=== PATIENT | male | born 1970 | race Caucasian/White ===

== ENCOUNTER 2016-02-27 10:48 | Emergency (ER) | payer BC ==
[2016-02-27 11:13] VITALS: BP 148/99
--- NOTE | 2016-02-27 13:37 | UC ---
Respiratory Complaint HPI - HPI Summary HPI Summary: cough, cold sx, fatigue, upset stomach, slept 20 hours yesterday---unsure about fevers - History of Current Complaint Chief Complaint: UCRespiratory Stated Complaint: BAD COLD Time Seen by Provider: 02/27/16 10:59 Hx Obtained From: Patient Onset/Duration: Gradual Onset, Lasting Days - 4, Still Present Timing: Constant Severity Initially: Moderate Severity Currently: Mild Pain Intensity: 0 Pain Scale Used: 0-10 Numeric Character: Cough: Nonproductive Alleviating Factors: OTC Meds Associated Signs And Symptoms: Positive: Chills, URI, Nasal Congestion - Allergies/Home Medications Allergies/Adverse Reactions: Allergies Allergy/AdvReac Type Severity Reaction Status Date / Time Latex Allergy Intermediate Rash Verified 06/15/12 14:58 [place] Allergy Intermediate Hives Verified 02/27/16 11:08 Penicillins Allergy Mild Hives Verified 06/15/12 14:58 Home Medications: Home Medications [id number] ER TAB [Mucinex*] 1 tab 02/27/16 [History] PMH/Surg Hx/FS Hx/Imm Hx Previously Healthy: No Cardiovascular History Of: Reports: Hypertension - Surgical History Surgical History: None - Family History Known Family History: Positive: Hypertension - Social History Occupation: Employed Full-time Lives: With Family - "roomates" Alcohol Use: Rare Substance Use Type: None Smoking Status (MU): Former Smoker Review of Systems Constitutional: Chills, Fatigue Skin: Negative Eyes: Negative ENT: Sore Throat, Ear Ache, Nasal Discharge Respiratory: Cough Cardiovascular: Negative Gastrointestinal: Negative Genitourinary: Negative Motor: Negative Neurovascular: Negative Musculoskeletal: Negative Neurological: Negative Psychological: Negative All Other Systems Reviewed And Are Negative: Yes Physical Exam Triage Information Reviewed: Yes Appearance: Well-Appearing, No Pain Distress, Well-Nourished Vital Signs: Initial Vital Signs Temp 99.7 F 02/27/16 11:09 Pulse 78 02/27/16 11:09 Resp 17 02/27/16 11:09 BP 148/99 02/27/16 11:09 Pulse Ox 97 02/27/16 11:09 Vital Signs Reviewed: Yes Eye Exam: Normal Eyes: Positive: Conjunctiva Clear ENT Exam: Normal ENT: Positive: Normal ENT inspection, Hearing grossly normal, Pharynx normal, Nasal congestion, Nasal drainage, TMs normal. Negative: Tonsillar swelling, Tonsillar exudate, Trismus, Muffled/hoarse voice Neck exam: Normal Neck: Positive: Supple, Nontender Respiratory Exam: Normal Respiratory: Positive: Chest non-tender, Lungs clear, Normal breath sounds, No respiratory distress, No accessory muscle use Cardiovascular Exam: Normal Cardiovascular: Positive: RRR, No Murmur, Pulses Normal, Brisk Capillary Refill Abdominal Exam: Normal Abdomen Description: Positive: Nontender, No Organomegaly, Soft Bowel Sounds: Positive: Present Musculoskeletal Exam: Normal Musculoskeletal: Positive: Strength Intact, ROM Intact, No Edema Neurological Exam: Normal Neurological: Positive: Alert, Muscle Tone Normal Psychological Exam: Normal Skin Exam: Normal UC Diagnostic Evaluation - Laboratory O2 Sat by Pulse Oximetry: 97 Respiratory Course/Dx - Course Course Of Treatment: tyleno, ibuprofen, otc symptom relieves, follow with pcp for BP recheck off work for 1 day - Differential Dx/Diagnosis Differential Diagnosis/HQI/PQRI: Lower Resp Infection, Sinusitis Provider Diagnoses: URI, Viral Illness Discharge - Discharge Plan Condition: Stable Disposition: HOME Prescriptions: Fluticasone NASAL SPRAY 50MCG* [Flonase NASAL SPRAY 50MCG*] 2 spray BOTH NARES DAILY #1 btl Patient Education Materials: Upper Respiratory Infection (ED), Viral Syndrome ( ED), How to Use Nasal [place] (ED) Forms: *Work Release Referrals: Froilan Moffett MD [Primary Care Provider] - 5 Days
== END 2016-02-27 11:22 | disposition home or self-care (01) ==
LOC: UCEAST 10:48
DX: J06.9 Acute upper respiratory infection, unspecified (principal); B34.9 Viral infection, unspecified; Z88.0 Allergy status to penicillin; Z87.891 Personal history of nicotine dependence
CPT/HCPCS: 99212; G0463

== ENCOUNTER 2016-09-01 19:30 | Emergency (ER) | payer BC ==
[2016-09-01 19:56] VITALS: BP 150/86
--- NOTE | 2016-09-01 20:12 | UC ---
Ear Complaint HPI - HPI Summary HPI Summary: Bilat ears "bothering" pt for 2-3 months, mostly feeling clogged, throbbing at night, hearing crackles. Sx mainly on L side. Also had 1 day of vertigo in late July, thinks it was from his ear. Had several surgeries on ears as a child, including tubes, no surgeries as an adult. Feeling some mild URI sx in the last couple days. - History of Current Complaint Chief Complaint: UCEar Stated Complaint: EAR PAIN Time Seen by Provider: 09/01/16 19:58 Hx Obtained From: Patient Onset/Duration: Gradual Onset, Lasting Weeks Severity Initially: Mild Severity Currently: Mild Associated Signs/Symptoms: Positive: Hearing Loss, URI Symptoms - Allergies/Home Medications Allergies/Adverse Reactions: Allergies Allergy/AdvReac Type Severity Reaction Status Date / Time Latex Allergy Intermediate Rash Verified 09/01/16 19:50 [place] Allergy Intermediate Hives Verified 09/01/16 19:50 Penicillins Allergy Mild Hives Verified 09/01/16 19:50 PMH/Surg Hx/FS Hx/Imm Hx Previously Healthy: Yes Cardiovascular History: Hypertension - Surgical History Surgical History: None - Family History Known Family History: Positive: Hypertension - Social History Alcohol Use: Occasionally Substance Use Type: None Smoking Status (MU): Former Smoker Length of Time of Smoking/Using Tobacco: quit 24 yrs ago Review of Systems Constitutional: Negative Skin: Negative Eyes: Negative ENT: Ear Ache, Nasal Discharge Respiratory: Negative Cardiovascular: Negative Gastrointestinal: Negative Genitourinary: Negative Motor: Negative Neurovascular: Negative Musculoskeletal: Negative Neurological: Negative Psychological: Negative All Other Systems Reviewed And Are Negative: Yes Physical Exam Triage Information Reviewed: Yes Appearance: Well-Appearing, No Pain Distress, Well-Nourished Vital Signs: Initial Vital Signs Temp 97.3 F 09/01/16 19:51 Pulse 99 09/01/16 19:51 Resp 16 09/01/16 19:51 BP 150/86 09/01/16 19:51 Pulse Ox 95 09/01/16 19:51 Vital Signs Reviewed: Yes Eye Exam: Normal Eyes: Positive: Conjunctiva Clear ENT: Positive: Pharynx normal, TMs normal - post-flush, Other: - L cerumen impaction Dental Exam: Normal Neck exam: Normal Neck: Positive: Supple, Nontender, No Lymphadenopathy Respiratory Exam: Normal Respiratory: Positive: Chest non-tender, Lungs clear, Normal breath sounds, No respiratory distress, No accessory muscle use Cardiovascular Exam: Normal Cardiovascular: Positive: RRR, No Murmur Musculoskeletal Exam: Normal Neurological Exam: Normal Psychological Exam: Normal Skin Exam: Normal Ear Complaint Course/Dx - Differential Dx/Diagnosis Provider Diagnoses: L ear cerumen impaction. URI, likely viral Discharge - Discharge Plan Condition: Stable Disposition: HOME Patient Education Materials: Cerumen Impaction (ED) Referrals: Froilan Moffett MD [Primary Care Provider] -
== END 2016-09-01 20:25 | disposition home or self-care (01) ==
LOC: UCEAST 19:30
DX: H61.22 Impacted cerumen, left ear (principal); J39.8 Other specified diseases of upper respiratory tract
CPT/HCPCS: 99211; G0463

== ENCOUNTER 2016-11-15 12:05 | Emergency (ER) | payer BC ==
--- NOTE | 2016-11-15 12:32 | UC ---
Respiratory Complaint HPI - HPI Summary HPI Summary: 46 Y/O male with complaint of upper respiratory symptoms for approximately one week. Presents today with C/O sore throat, fever and chills. States did not take a temperature at home. Denies dyspnea, nausea, vomiting, chest pain or abdominal pain. Discussed elevated blood pressure 165/109, states has history of hypertension, takes medications as directed. Has been to primary medical doctor recently and has been counseled regarding diet, exercise, and medication adherence. All other medical history reviewed along with medications. - History of Current Complaint Chief Complaint: UCRespiratory Stated Complaint: URI Time Seen by Provider: 11/15/16 12:20 Hx Obtained From: Patient Onset/Duration: Gradual Onset, Lasting Days Timing: Constant Severity Initially: Mild Severity Currently: Moderate Pain Intensity: 4 Pain Scale Used: 0-10 Numeric Aggravating Factors: Nothing Associated Signs And Symptoms: Positive: Fever, Chills - Risk Factors Pulmonary Embolism Risk Factors: Negative Cardiac Risk Factors: Hypertension, Elevated Lipids Pseudomonas Risk Factors: Negative Tuberculosis Risk Factors: Negative - Allergies/Home Medications Allergies/Adverse Reactions: Allergies Allergy/AdvReac Type Severity Reaction Status Date / Time Latex Allergy Intermediate Rash Verified 11/15/16 12:09 [place] Allergy Intermediate Hives Verified 11/15/16 12:09 Penicillins Allergy Mild Hives Verified 11/15/16 12:09 PMH/Surg Hx/FS Hx/Imm Hx Previously Healthy: Yes Cardiovascular History: Hypertension GI/ History: Gastroesophageal Reflux - Surgical History Surgical History: None - Family History Known Family History: Positive: Hypertension - Social History Alcohol Use: Occasionally Substance Use Type: None Smoking Status (MU): Former Smoker Length of Time of Smoking/Using Tobacco: quit 24 yrs ago Review of Systems Constitutional: Fever, Chills Skin: Negative Eyes: Negative ENT: Negative Respiratory: Negative Cardiovascular: Negative Gastrointestinal: Negative Genitourinary: Negative Motor: Negative Neurovascular: Negative Musculoskeletal: Negative Neurological: Negative Psychological: Negative Is Patient Immunocompromised?: No All Other Systems Reviewed And Are Negative: Yes Physical Exam Triage Information Reviewed: Yes Appearance: Well-Appearing Vital Signs: Initial Vital Signs Temp 98.3 F 11/15/16 12:09 Pulse 68 11/15/16 12:09 Resp 18 11/15/16 12:09 BP 165/109 11/15/16 12:09 Pulse Ox 100 11/15/16 12:09 Vital Signs Reviewed: Yes Eye Exam: Normal Eyes: Positive: Conjunctiva Clear ENT Exam: Other ENT: Positive: Pharyngeal erythema Neck exam: Normal Neck: Positive: Supple Respiratory Exam: Normal Respiratory: Positive: Lungs clear, Normal breath sounds Cardiovascular Exam: Normal Cardiovascular: Positive: RRR Abdominal Exam: Normal Abdomen Description: Positive: Nontender Bowel Sounds: Positive: Present Musculoskeletal Exam: Normal Musculoskeletal: Positive: Strength Intact Neurological Exam: Normal Neurological: Positive: Alert Psychological Exam: Normal Skin Exam: Normal UC Diagnostic Evaluation - Laboratory O2 Sat by Pulse Oximetry: 100 Respiratory Course/Dx - Differential Dx/Diagnosis Differential Diagnosis/HQI/PQRI: Lower Resp Infection, Other Provider Diagnoses: Viral illness Discharge - Discharge Plan Condition: Stable Disposition: HOME Patient Education Materials: Viral Syndrome (ED) Additional Instructions: Your rapid strep test was negative. Continue to drink plenty of fluids and get rest. Your repeat blood pressure was elevated 130/100. Please follow up with your primary medical provider and continue to take medication as directed. You may return to urgent care for worsening symptoms (shortness of breath, fever, difficulty swallowing). .
[2016-11-15 12:46] VITALS: BP 130/100
== END 2016-11-15 12:55 | disposition home or self-care (01) ==
LOC: UCEAST 12:05
DX: B34.9 Viral infection, unspecified (principal); Z88.0 Allergy status to penicillin; I10 Essential (primary) hypertension
CPT/HCPCS: 87651; 99211; G0463

== ENCOUNTER 2019-02-26 16:50 | Emergency (ER) | payer BC, OTHER ==
[2019-02-26 17:04] VITALS: BP 162/107
--- NOTE | 2019-02-26 17:12 | UC ---
Throat Pain/Nasal [place] HPI - HPI Summary HPI Summary: Patient is a 48yo male presenting with chest congestion, dry cough, nasal congestion, and b/l ear pressure x1.5 days. Patient states he thought symptoms would get better but they are worsening. Also notes PND. Denies sore throat. Denies SOB and wheezing. Denies fever and myalgias. Notes chills. Denies decreased appetite/fluid intake. Denies ill contacts. - History of Current Complaint Chief Complaint: UCGeneralIllness Stated Complaint: CONGESTION, COUGH Hx Obtained From: Patient Pain Intensity: 0 - Allergies/Home Medications Allergies/Adverse Reactions: Allergies Allergy/AdvReac Type Severity Reaction Status Date / Time latex Allergy Rash Verified 02/26/19 17:04 Penicillins Allergy Hives Verified 02/26/19 17:04 [place] Allergy Rash Verified 02/26/19 17:04 PMH/Surg Hx/FS Hx/Imm Hx Cardiovascular History: Hypertension - Surgical History Surgical History: None - Family History Known Family History: Positive: Hypertension - Social History Alcohol Use: Rare Substance Use Type: None Smoking Status (MU): Former Smoker Length of Time of Smoking/Using Tobacco: quit 24 yrs ago Review of Systems All Other Systems Reviewed And Are Negative: Yes Constitutional: Positive: Chills. Negative: Fever ENT: Positive: Nasal Discharge - PND, Sinus Congestion. Negative: Sore Throat, Sinus Pain/Tenderness Respiratory: Positive: Cough - nonproductive. Negative: Shortness Of Breath Cardiovascular: Positive: Negative Gastrointestinal: Positive: Negative. Negative: Vomiting, Nausea Musculoskeletal: Negative: Myalgia Neurological: Negative: Headache Physical Exam Triage Information Reviewed: Yes Appearance: Well-Appearing, No Pain Distress, Well-Nourished Vital Signs: Initial Vital Signs Temp 98.6 F 02/26/19 16:59 Pulse 100 02/26/19 16:59 Resp 18 02/26/19 16:59 BP 162/107 02/26/19 16:59 Pulse Ox 98 02/26/19 16:59 Lab Results 02/26/19 Range/Units 17:12 Influenza A (Rapid) Negative (Negative) Influenza B (Rapid) Negative (Negative) Vital Signs Reviewed: Yes Eyes: Positive: Conjunctiva Clear ENT: Positive: Hearing grossly normal, Pharynx normal, Nasal drainage, TMs normal, Uvula midline. Negative: Tonsillar swelling, Tonsillar exudate, Sinus tenderness Neck exam: Normal Neck: Positive: Supple, Nontender, No Lymphadenopathy Respiratory Exam: Normal Respiratory: Positive: Lungs clear, Normal breath sounds, No respiratory distress, No accessory muscle use. Negative: Crackles, Rhonchi, Stridor, Wheezing Cardiovascular Exam: Normal Cardiovascular: Positive: RRR, No Murmur Neurological: Positive: Alert Psychological: Positive: Age Appropriate Behavior Skin Exam: Normal Throat Pain/Nasal Course/Dx - Course Course Of Treatment: Negative rapid flu. Discussed viral URI and acute bronchitis with patient. Instructed to continue with symptomatic treatment and follow up with pcp if symptoms do not resolve. Patient voiced understanding and agreed with treatment plan. - Differential Dx/Diagnosis Provider Diagnosis: Viral URI, Acute bronchitis Discharge ED - Sign-Out/Discharge Documenting (check all that apply): Patient Departure All imaging exams completed and their final reports reviewed: No Studies - Discharge Plan Condition: Stable Disposition: HOME Patient Education Materials: Upper Respiratory Infection (ED), Acute Bronchitis (ED), Hypertension (ED) Forms: *Work Release Referrals: Froilan Moffett MD [Primary Care Provider] - 2 Weeks Additional Instructions: As discussed, your symptoms are most likely caused by a virus and should resolve without treatment. You may take an over the counter decongestant to help reduce your mucus production. You may continue to take over the counter cough and cold medications for your cold symptoms. You may use nasal saline spray or Flonase for symptomatic relief. You may take ibuprofen as directed for pain relief. Get plenty of rest and increase your fluid intake. Follow up with your primary care doctor if your symptoms worsen or do not resolve within 7 days. Your blood pressure was elevated at 162/107. It is recommended that you follow up with your primary care provider withing the next 1-2 weeks for recheck of blood pressure. - Billing Disposition and Condition Condition: STABLE Disposition: Home
[2019-02-26 17:24] LABS: Influenza A Molecular NEGATIVE (Negative); Influenza B Molecular NEGATIVE (Negative)
== END 2019-02-26 17:40 | disposition home or self-care (01) ==
LOC: UCEAST 16:50
DX: J06.9 Acute upper respiratory infection, unspecified (principal); J20.9 Acute bronchitis, unspecified; I10 Essential (primary) hypertension; Z87.891 Personal history of nicotine dependence; Z88.0 Allergy status to penicillin; Z91.018 Allergy to other foods; Z91.040 Latex allergy status
CPT/HCPCS: 99211; G0463

== ENCOUNTER 2019-03-21 10:38 | Emergency (ER) | payer OTHER ==
[2019-03-21 11:46] VITALS: BP 150/86
[2019-03-21 13:26] LABS: Influenza A Molecular Negative (Negative); Influenza B Molecular Negative (Negative)
--- NOTE | 2019-03-21 14:25 | UC ---
FLU HPI - HPI Summary HPI Summary: 48-year-old male presents with 2 day history of general malaise, nasal congestion, runny nose, sneezing, left ear pain, sore throat, a dry nonproductive cough. He has not used any [id number] cold medications. Denies fever, chills, ear drainage, dysphagia, chest pain, shortness of breath, abdominal pain, nausea, or vomiting. - History of Current Complaint Chief Complaint: UCEar Stated Complaint: COUGH CONGESTION EAR PAIN Time Seen by Provider: 03/21/19 13:49 Hx Obtained From: Patient Pain Intensity: 3 - Allergy/Home Medications Allergies/Adverse Reactions: Allergies Allergy/AdvReac Type Severity Reaction Status Date / Time latex Allergy Rash Verified 03/21/19 11:40 Penicillins Allergy Hives Verified 03/21/19 11:40 [place] Allergy Rash Verified 03/21/19 11:40 Home Medications: Home Medications Hydrochlorothiazide TAB* [Hydrodiuril TAB*] 25 mg PO DAILY 03/21/19 [History] PMH/Surg Hx/FS Hx/Imm Hx Cardiovascular History: Hypertension - Surgical History Surgical History: Yes Surgery Procedure, Year, and Place: tubes in ears as a child - Family History Known Family History: Positive: Hypertension - Social History Occupation: Employed Full-time Lives: Alone Alcohol Use: Rare Substance Use Type: None Smoking Status (MU): Former Smoker Length of Time of Smoking/Using Tobacco: quit 24 yrs ago - Immunization History Most Recent Tetanus Shot: UTD Review of Systems All Other Systems Reviewed And Are Negative: Yes Constitutional: Negative: Fever, Chills Eyes: Negative: Drainage, Eye Redness ENT: Positive: Sore Throat, Ear Ache, Nasal Discharge, Sinus Congestion. Negative: Sinus Pain/Tenderness Respiratory: Positive: Cough. Negative: Shortness Of Breath Cardiovascular: Negative: Palpitations, Chest Pain Gastrointestinal: Negative: Abdominal Pain, Vomiting, Nausea Genitourinary: Positive: Negative Musculoskeletal: Positive: Negative Neurological: Positive: Negative Is Patient Immunocompromised?: No Physical Exam - Summary Physical Exam Summary: GENERAL APPEARANCE: Well developed, well nourished, alert and cooperative, and appears to be in no acute distress. EYES: Conjunctiva clear. No drainage. EARS: External auditory canals and tympanic membranes clear, hearing grossly intact. NOSE: Moderate nasal congestion. No nasal discharge. THROAT: Mild pharyngeal erythema with postnasal drip. No tonsilar inflammation , swelling, exudate, or lesions. Uvula midline. NECK: Neck supple, non-tender without lymphadenopathy. CARDIAC: Normal S1 and S2. No S3, S4 or murmurs. Rhythm is regular. There is no peripheral edema, cyanosis or pallor. Extremities are warm and well perfused. Capillary refill is less than 2 seconds. Peripheral pulses intact. LUNGS: Clear to auscultation without rales, rhonchi, wheezing or diminished breath sounds. Dry, nonproductive cough. ABDOMEN: Positive bowel sounds. Soft, nondistended, nontender. No guarding or rebound. No masses or hepatosplenomegally. MUSKULOSKELETAL: ROM intact to all extremities. No joint erythema or tenderness. Normal muscular development. Normal gait. SKIN: Skin normal color, texture and turgor with no lesions or eruptions. Triage Information Reviewed: Yes Vital Signs: Initial Vital Signs Temp 98.8 F 03/21/19 11:41 Pulse 70 03/21/19 11:41 Resp 20 03/21/19 11:41 BP 150/86 03/21/19 11:41 Pulse Ox 99 03/21/19 11:41 Vital Signs Reviewed: Yes Flu Course/Dx - Course Course Of Treatment: 48-year-old male presents with 2 day history of general malaise, nasal congestion, runny nose, sneezing, left ear pain, sore throat, a dry nonproductive cough. He has not used any [id number]-[id number] cold medications. Denies fever, chills, ear drainage, dysphagia, chest pain, shortness of breath, abdominal pain, nausea, or vomiting. Afebrile. Hypertensive otherwise vital signs stable. Patient had moderate nasal congestion, normal TMs, mild pharyngeal erythema without tonsillar swelling or exudate, no cervical lymphadenopathy, clear bilateral breath sounds, dry nonproductive cough, and otherwise unremarkable exam. Rapid flu test was negative. Rapid strep test was negative. Results were reviewed with the patient. Discussed that his symptoms are consistent with an acute viral upper respiratory infection and recommending symptomatic treatment at this time. He is to follow-up with his primary care provider in 3-5 days if symptoms are not improving. Anticipatory guidance and warning symptoms were reviewed with the patient. Verbalized understanding and agrees with plan of care. - Differential Dx/Diagnosis Differential Diagnosis/HQI/PQRI: Bronchitis, Influenza, Pneumonia, Upper Respiratory Infection Provider Diagnosis: Viral URI with cough Discharge ED - Sign-Out/Discharge Documenting (check all that apply): Patient Departure All imaging exams completed and their final reports reviewed: No Studies - Discharge Plan Condition: Stable Disposition: HOME Prescriptions: Benzonatate CAP* [Tessalon 100 MG CAP*] 100 mg PO TID PRN #21 cap PRN Reason: Cough Fluticasone NASAL SPRAY 50MCG* [Flonase NASAL SPRAY 50MCG*] 2 spray BOTH NARES DAILY #1 btl Patient Education Materials: Upper Respiratory Infection (ED) Forms: *Work Release Referrals: Froilan Moffett MD [Primary Care Provider] - 3 Days (If no improvement in symptoms.) Additional Instructions: The rapid flu test and rapid strep test that was performed in the clinic today were both negative. Your history and exam are consistent with a viral upper respiratory infection. Viral infections do not respond to antibiotics and are limited to the treatment of symptoms. Viral infections typically run their course in 7-10 days. Drink plenty of fluids to avoid dehydration especially if you are running any fever. Use a saline rinse kit such as Neti Pot or NeilMed at least twice a day to help thin secretions and promote drainage of the sinuses. Use fluticasone (Flonase) nasal spray 2 sprays each nostril once daily. Use Tessalon Perles 1 capsule every 8 hours as needed for cough. Take over the counter acetaminophen (Tylenol) or ibuprofen (Advil, Motrin) according to directions as needed for pain or fever. Use salt water gargles several times a day if you have a sore throat. You may also use Chloraseptic spray or Cepacol lonzenges according to directions which contain a numbing medication and can provide some temporary relief from your sore throat. Follow up with your primary care provider in 3-5 days if symptoms persist. Seek immediate medical attention in the emergency room if you have fever greater than 100.5 F despite taking acetaminophen or ibuprofen, have chest pain , difficulty breathing, are unable to swallow, or have any worsening of symptoms. - Billing Disposition and Condition Condition: STABLE Disposition: Home
== END 2019-03-21 14:47 | disposition home or self-care (01) ==
LOC: UCEAST 10:38
DX: J06.9 Acute upper respiratory infection, unspecified (principal); R05 Cough; I10 Essential (primary) hypertension; Z91.040 Latex allergy status; Z88.0 Allergy status to penicillin; Z91.018 Allergy to other foods; Z79.899 Other long term (current) drug therapy; Z87.891 Personal history of nicotine dependence
CPT/HCPCS: 87651; 99212; G0463